=== PATIENT | female | born 1960 | race Caucasian/White ===

== ENCOUNTER 2019-08-05 14:39 | Inpatient (IN) | payer MEDICARE, MEDICAID ==
[2019-08-05] VITALS (14 sets, daily range): BP systolic 124–166; BP diastolic 72–91
[~2019-08-05] VITALS: Ht 160 cm; Wt 72.7 kg
[2019-08-05] MEDS ORDERED: ASPIRIN 325MG TABLET PO ONE (15:15)
[2019-08-05] MEDS ORDERED: ONDANSETRON HCL 4MG/2ML INJ IV ONE (15:15)
[2019-08-05 15:35] LABS: BASOPHILS % 0.3 % (0.0-2.0); HEMATOCRIT. 42.4 % (36.0-48.0); HEMOGLOBIN. 14.1 g/dL (12.0-16.0); LYMPHOCYTES % 17.8 % (20.0-50.0); MEAN CORPUSCULAR VOLUME 81.5 fL (81.0-99.0); MEAN PLATELET VOLUME 9.1 fl (7.4-10.4); MONOCYTES % 5.6 % (2.0-8.0); NEUTROPHILS % 75.3 % (40.0-76.0); PLATELET 323 x1000/uL (130-400); RED CELL DISTRIBUTION WIDTH 16.2 % (11.6-14.6)
[2019-08-05 15:40] LABS: CHLORIDE 99 mEq/L (98-107)
[2019-08-05 15:43] LABS: ETHANOL BLOOD < 10 mg/dL
[2019-08-05 15:45] LABS: INR 0.9
[2019-08-05 15:47] LABS: LDL CHOLESTEROL 116 mg/dL (5-100)
[2019-08-05] MEDS ORDERED: ALTEPLASE IV NR (16:00)
[2019-08-05] MEDS ORDERED: ALTEPLASE 100MG/VIAL IV NR (16:00)
[2019-08-05] MEDS ORDERED: CONTAINER EMPTY IV NR (16:00)
[2019-08-05] MEDS ORDERED: *NO ASPIRIN X 24 HOURS XX SCH (16:15)
[2019-08-05] MEDS ORDERED: IPRATROPIUM/ALBUTEROL 0.5-3(2.5)MG/3ML NEB NEB PRN (17:00)
[2019-08-05] MEDS ORDERED: MAGNESIUM/ALUMINUM HYDROXIDE/SIMETHICONE 30ML UDC PO PRN (17:00)
[2019-08-05] MEDS ORDERED: MORPHINE SULFATE 2 MG/ML CPJ (NOT FOR IM USE) IV PRN (17:00)
[2019-08-05] MEDS ORDERED: NA PHOS,M-B/NA PHOS,DI-BA ENEMA 118ML PR PRN (17:00)
[2019-08-05] MEDS ORDERED: DIPHENHYDRAMINE 50MG/ML VIAL IV PRN (17:00)
[2019-08-05] MEDS ORDERED: LORAZEPAM 2MG/ML CPJ IV PRN (17:00)
[2019-08-05] MEDS ORDERED: ACETAMINOPHEN 650MG SUPP PR PRN (17:00)
[2019-08-05] MEDS ORDERED: ACETAMINOPHEN 325MG TABLET PO PRN (17:00)
[2019-08-05] MEDS ORDERED: ONDANSETRON HCL 4MG/2ML INJ IV PRN (17:00)
[2019-08-05 17:02] LABS: CLARITY URINE CLOUDY (CLEAR); COLOR URINE YELLOW (YELLOW); KETONES URINE NEGATIVE (NEGATIVE); LEUKOCYTE ESTERASE URINE 2+ (NEGATIVE); NITRITE URINE NEGATIVE (NEGATIVE); OCCULT BLOOD URINE NEGATIVE (NEGATIVE); PROTEIN URINE 2+ (NEGATIVE); SPECIFIC GRAVITY URINE 1.013 (1.005-1.030); UROBILINOGEN URINE 0.2 E.U./dL (0.2-1.0)
[2019-08-05 17:22] LABS: *AMPHETAMINES SCREEN URINE NEGATIVE (NEGATIVE)
[2019-08-05 17:23] LABS: *BARBITURATES SCREEN URINE NEGATIVE (NEGATIVE); *BENZODIAZEPINES SCREEN URINE NEGATIVE (NEGATIVE); *COCAINE SCREEN URINE NEGATIVE (NEGATIVE); METHADONE URINE SCREEN NEGATIVE (NEGATIVE); OPIATES URINE SCREEN NEGATIVE (NEGATIVE); PHENCYCLIDINE URINE SCREEN NEGATIVE (NEGATIVE)
[2019-08-05 17:24] LABS: CANNABINOID URINE SCREEN NEGATIVE (NEGATIVE)
[2019-08-05] MEDS ORDERED: DEXTROSE 50% WATER 50ML SYRINGE IV PRN (18:00)
[2019-08-05 19:01] LABS: HEMOGLOBIN 13.7 g/dL (12.0-16.0); MEAN CORPUSCULAR HEMOGLOBIN 26.9 pg (28.0-32.0); MEAN CORPUSCULAR VOLUME 82.2 fL (81.0-99.0); PLATELET 340 x1000/uL (130-400); RED BLOOD CELL COUNT 5.11 mill/uL (4.2-5.4); RED CELL DISTRIBUTION WIDTH 16.2 % (11.6-14.6)
[2019-08-05] MEDS ORDERED: IOHEXOL-350 100 ML BOTTLE ONE (19:05)
[2019-08-05 19:07] LABS: CHLORIDE 99 mEq/L (98-107)
[2019-08-05 19:10] LABS: PROTHROMBIN TIME 10.7 sec (9.6-11.0)
[2019-08-05] MEDS ORDERED: SODIUM CHLORIDE 0.9% 1,000 ML IV SCH (19:30)
[2019-08-05] MEDS: BLOOD SUGAR DIAGNOSTIC STRIP TEST SCH (21:51)
[2019-08-05] MEDS: INSULIN LISPRO 100 UNITS/ML SUBCUT SCH (22:30)
[2019-08-06] VITALS (34 sets, daily range): BP systolic 116–166; BP diastolic 61–107
[2019-08-06 05:36] LABS: BASOPHILS % 0.3 % (0.0-2.0); CHLORIDE 102 mEq/L (98-107); EOSINOPHILS % 1.1 % (0.0-5.0); HEMATOCRIT. 36.6 % (36.0-48.0); HEMOGLOBIN. 12.2 g/dL (12.0-16.0); LYMPHOCYTES % 27.2 % (20.0-50.0); MEAN CORPUSCULAR HEMOGLOBIN 27.2 pg (28.0-32.0); MEAN CORPUSCULAR VOLUME 81.5 fL (81.0-99.0); MEAN PLATELET VOLUME 9.1 fl (7.4-10.4); NEUTROPHILS % 63.4 % (40.0-76.0); PLATELET 308 x1000/uL (130-400); RED BLOOD CELL COUNT 4.49 mill/uL (4.2-5.4); RED CELL DISTRIBUTION WIDTH 15.9 % (11.6-14.6)
[2019-08-06 05:44] LABS: HDL CHOLESTEROL 35 mg/dL (40-59); LDL CHOLESTEROL 103 mg/dL (5-100)
[2019-08-06] MEDS: BLOOD SUGAR DIAGNOSTIC STRIP TEST SCH ×4 (05:52→20:51)
[2019-08-06] MEDS: INSULIN LISPRO 100 UNITS/ML SUBCUT SCH ×4 (06:27→20:55)
[2019-08-06] MEDS: FAMOTIDINE 20MG/2ML VIAL IV SCH (08:52)
[2019-08-06] MEDS ORDERED: PNEUMOCOCCAL 23-VAL P-SAC VAC 0.5 ML IM ONE (12:00)
[2019-08-06] MEDS ORDERED: INSULIN GLARGINE UD 100 UNITS/ML SYR SUBCUT NR (13:00)
[2019-08-06] MEDS ORDERED: ATORVASTATIN CALCIUM 40MG TABLET PO SCH (21:00)
[2019-08-06] MEDS: INSULIN GLARGINE UD 100 UNITS/ML SYR SUBCUT SCH (22:26)
[2019-08-07] VITALS (8 sets, daily range): BP systolic 117–148; BP diastolic 67–95
[2019-08-07 06:12] LABS: HEMATOCRIT 37.6 % (36.0-48.0); HEMOGLOBIN 12.4 g/dL (12.0-16.0); MEAN CORPUSCULAR HEMOGLOBIN 26.8 pg (28.0-32.0); MEAN CORPUSCULAR VOLUME 81.3 fL (81.0-99.0); PLATELET 327 x1000/uL (130-400); RED BLOOD CELL COUNT 4.62 mill/uL (4.2-5.4)
[2019-08-07 06:19] LABS: CHLORIDE 102 mEq/L (98-107)
[2019-08-07] MEDS: BLOOD SUGAR DIAGNOSTIC STRIP TEST SCH ×2 (06:40→11:34)
[2019-08-07] MEDS ORDERED: ASPIRIN 81MG TABLET PO SCH (09:00)
[2019-08-07] MEDS ORDERED: CLOPIDOGREL 75MG TABLET PO SCH (09:00)
[2019-08-07] MEDS: FAMOTIDINE 20MG/2ML VIAL IV SCH (09:45)
[2019-08-07] MEDS: INSULIN LISPRO 100 UNITS/ML SUBCUT SCH ×2 (09:46→12:18)
[2019-08-07] MEDS ORDERED: INSULIN GLARGINE UD 100 UNITS/ML SYR SUBCUT SCH ×3 (10:00→13:00)
[2019-08-07] MEDS: INSULIN GLARGINE UD 100 UNITS/ML SYR SUBCUT SCH (11:34)
[2019-08-07] MEDS ORDERED: METF-414 MT (11:49)
[2019-08-07] MEDS ORDERED: ATOR80TA MT (11:49)
[2019-08-07] MEDS ORDERED: BLOO-1465 MT (11:49)
[2019-08-07] MEDS ORDERED: ASPI-1497 MT (11:49)
[2019-08-07] MEDS ORDERED: INSU100I28 SQ (11:49)
[2019-08-07] MEDS ORDERED: CLOP75TA4 MT (11:49)
[2019-08-07] MEDS ORDERED: INSLIS SUBCUT (11:49)
[2019-08-07] MEDS ORDERED: INSULIN LISPRO 100 UNITS/ML SUBCUT SCH (12:00)
== END 2019-08-07 14:55 | disposition home or self-care (01) | DRG 62 ==
LOC: ER 14:39 → EDBEDREQSVC 15:13 → EDBEDREQ 15:13 → EDBEDREQTM 15:13 → MICUSO 16:25 → EDBEDREQTM 16:41 → EDBEDREQ 16:41 → EDBEDREQSVC 16:41 → SUPCPDRO 16:59 → EDBEDREQ 17:08 → ENRESERV 19:56 → 5EST 08-06 11:10
PROVIDERS: ADMIT Internal Medicine; ATTEND Internal Medicine
DX: I63.9 Cerebral infarction, unspecified (principal); G81.94 Hemiplegia, unspecified affecting left nondominant side; H53.2 Diplopia; E11.65 Type 2 diabetes mellitus with hyperglycemia; I10 Essential (primary) hypertension; E66.9 Obesity, unspecified; E78.5 Hyperlipidemia, unspecified
CPT/HCPCS: 36415; 70496; 70551; 71045; 80048; 80053; 80061; 80305; 80320; 81003; 82962; 83036; 83721; 84484; 85025; 85027; 90732; 92610; 93005; 93306; 93880; 93970; 95816; 96365; 96375; 97110; 97162; 97166; 97535; 99285; J1815; J2405; J2997; J3490; J7060; Q9967; G0480

== ENCOUNTER 2021-09-15 17:58 | Emergency (ER) | payer MEDICARE, MEDICAID ==
[~2021-09-15] VITALS: Ht 162.6 cm; Wt 73.0 kg
[~2021-09-15 17:58] MED LIST: ASPI-1497 MT; ATOR80TA MT; BLOO-1465 MT; CLOP-31 MT; INSLIS SUBCUT; INSU100I28 SQ; METF-414 MT
[2021-09-15] MEDS ORDERED: HYDROCODONE/ACETAMINOPHEN 5/325MG TABLET PO ONE ×2 (18:30→20:45)
[2021-09-15] MEDS ORDERED: HYDR-4001 MT (20:58)
[2021-09-15 21:45] VITALS: BP 135/73
== END 2021-09-15 21:46 | disposition home or self-care (01) ==
LOC: ER 17:58
DX: S42.293A Other displaced fracture of upper end of unspecified humerus, initial encounter for closed fracture (principal); S52.599A Other fractures of lower end of unspecified radius, initial encounter for closed fracture; M25.512 Pain in left shoulder; M25.531 Pain in right wrist; E11.9 Type 2 diabetes mellitus without complications; E78.00 Pure hypercholesterolemia, unspecified; I10 Essential (primary) hypertension; W01.198A Fall on same level from slipping, tripping and stumbling with subsequent striking against other object, initial encounter; Y93.89 Activity, other specified; Y92.9 Unspecified place or not applicable; Z79.4 Long term (current) use of insulin; Z79.82 Long term (current) use of aspirin; Z86.73 Personal history of transient ischemic attack (TIA), and cerebral infarction without residual deficits
CPT/HCPCS: 29125; 70486; 73030; 73110; 99284